=== PATIENT | male | born 1960 | race Caucasian/White ===

== ENCOUNTER 2023-11-25 09:45 | Emergency (ER) | payer OTHER, SELFPAY ==
[2023-11-25] VITALS (33 sets, daily range): BP systolic 113–126; BP diastolic 67–73; PULSE 82–107; RESP 2–18; TEMP 36.7–36.8; O2SAT 91–98
--- NOTE | 2023-11-25 10:00 | RT.EKG_ITS ---
APPROVED REPORT Exam: Resting ECG Reason for Exam: chest pain Patient Location: E HR:100 bpm ECG Measurements Heart Rate 100 AXIS NH 122 P 66 QRSd 81 QRS 39 QT 345 T 27 QTc 447 Conclusion Sinus tachycardia...rate> 99 Probable left atrial enlargement...P >50mS, <-0.10mV V1 sinus tachycardia, normal axis, normal intervals, nnon ischemic
--- NOTE | 2023-11-25 10:07 | ED.GENADUL_ITS ---
Discharge Plan Disposition Patient Disposition: Home Condition: Improving Discharge Details Clinical Impression: Pneumonia Primary Care Provider: Ricarda Dupree ED Provider: Ivan Rosenberg Home Meds and New Rx's Prescriptions: New levofloxacin 750 mg tablet 750 mg PO DAILY 7 Days Qty: 7 0RF albuterol sulfate 90 mcg/actuation HFA aerosol inhaler 2 puff inhalation Q6H PRN (Reason: shortness of breath or wheezing) Qty: 6.7 0RF No Action amlodipine 10 mg tablet 10 mg PO DAILY Discharge Instructions Instructions: Pneumonia (ED) HPI General Date/Time Provider Initiated Documentation: 11/25/23 09:57 . HPI Narrative: 63-year-old male presents with productive cough over the last day, left-sided chest discomfort body aches fevers chills and fatigue at home, did feel lightheaded yesterday, denies history of coronary disease or thromboembolic disease denies recent travel immobilization leg pain or swelling or recent surgery Related Data Home Medications Medication Instructions Recorded Confirmed amlodipine 10 mg tablet 10 mg PO DAILY 11/05/23 11/25/23 albuterol sulfate 90 mcg/actuation 2 puff inhalation Q6H PRN 11/25/23 aerosol inhaler shortness of breath or wheezing #6.7 grams levofloxacin 750 mg tablet 750 mg PO DAILY 7 days #7 tabs 11/25/23 Previous Rx's Medication Instructions Recorded albuterol sulfate 90 mcg/actuation 2 puff inhalation Q6H PRN 11/25/23 aerosol inhaler shortness of breath or wheezing #6.7 grams levofloxacin 750 mg tablet 750 mg PO DAILY 7 days #7 tabs 11/25/23 Allergies Allergy/AdvReac Type Severity Reaction Status Date / Time peanut Allergy Severe Swelling/Ed Verified 11/25/23 09:56 annabelle Penicillins Allergy UNKNOWN Unverified 11/25/23 09:56 CATS Allergy Unknown Swelling/Ed Uncoded 11/25/23 09:56 annabelle EGG WHITES Allergy Unknown Swelling/Ed Uncoded 11/25/23 09:56 annabelle HAY Allergy Unknown Swelling/Ed Uncoded 11/25/23 09:56 annabelle MOLD Allergy Unknown Swelling/Ed Uncoded 11/25/23 09:56 annabelle General Stated Complaint: GenMedical MINGO: 3 Review of Systems Narrative: Review of Systems Constitutional: Fatigue Eyes: negative ENT: negative Cardiovascular: negative Respiratory: Cough Gastrointestinal: negative : negative Musculoskeletal: negative Skin: negative Neurologic: negative Psych: negative Exam Narrative Exam Narrative: Physical Examination General: alert, awake, cooperative, resting comfortably, no acute distress HEENT: normocephalic, atraumatic; PERRL, EOM intact, conjunctiva normal; no nasal discharge; moist mucous membranes, oral and pharyngeal mucosa normal, tolerating secretions Neck: supple, trachea midline; full ROM Chest: normal to inspection Respiratory: normal respiratory effort, speaking in full sentences, clear to auscultation, no wheezing, rales or rhonchi Cardiac: regular rate, regular rhythm, S1S2 intact, no murmurs rubs or gallops GI: abdomen soft, non-tender, non-distended; no palpable mass or hepatosplenomegaly Skin: no lesions, rashes or trauma appreciated Neuro: AAOx3, normal speech, moving all extremities Psych: Appropriate mood and affect Course Vital Signs Vital signs: Vital Signs Temperature 36.8 C 11/25/23 09:52 Pulse 88 11/25/23 09:52 Respiratory Rate 16 11/25/23 09:52 Blood Pressure 126/67 11/25/23 09:52 Pulse Oximetry 98 11/25/23 09:52 Temperature 36.8 C 11/25/23 09:52 Pulse 88 11/25/23 09:52 Respiratory Rate 16 11/25/23 09:52 Blood Pressure 126/67 11/25/23 09:52 Pulse Oximetry 98 11/25/23 09:52 Medical Decision Making 63-year-old male presents with fevers chills productive cough left-sided chest discomfort, afebrile nontoxic speaking full sentences nonhypoxic nontachypneic nontachycardic, no history of coronary disease with normal heart disease, no thromboembolic risk factors, high clinical suspicion for pneumonia with pleurisy versus viral upper respiratory illness low suspicion for pneumothorax ACS or aortic pathology, must consider PE given lightheadedness pleuritic chest pain and report of hemoptysis, obtain screening labs chest x-ray trial of nebs and steroids, if there is no evidence of pneumonia on x-ray consider CT chest to assess for PE. 11: 40 evidence of left lower lobe pneumonia, starting on levofloxacin. Close reassessment of symptoms likely home with close follow-up and return precautions 15: [address] negative for PE. Multifocal pneumonia most heavily concentrated in left lower lobe. Will continue with levofloxacin as outpatient. Home care instructions and return precautions given Quality:SDOH Health Related Social Needs: No Data to Display PFSH All Active Problems (Updated 11/25/23 @ 15:11 by Ivan Rosenberg MD) Pneumonia (Acute) Screening for colon cancer (Acute) Medical History (Updated 11/25/23 @ 15:11 by Ivan Rosenberg MD) Bilateral hearing loss Internal hemorrhoids Mononeuropathy of left lower extremity Gout Hypertension Urinary frequency Tinnitus, bilateral Sensorineural hearing loss of both ears Asthma Personal history of colonic polyps Surgical History (Updated 01/04/22 @ 11:12 by Audra Villareal RN) History of colonoscopy (~12/2015) 2012 Family History Mother Hyperlipidemia Father Hypertensive disorder, systemic arterial Asthma Sister No problems noted. Social History (Updated 11/05/23 @ 08:38 by PETR Sahu) Smoking/Tobacco Use Status: Never Smoking risk assessment performed?: Yes Alcohol Intake: current Alcohol Intake frequency: a few times a week Drug use: Never Substance use type: does not use Housing: house Do you feel safe at home: Yes Do you feel safe in your relationship?: Yes
[2023-11-25 10:22] LABS: Abs Immature Grans 0.29 10^3/uL (0.0-0.06); HGB 13.6 g/dL (13.5-17.5); MCH 29.5 pg (27.0-33.0); MCHC 32.4 % (32.0-36.0); MCV 91 fL (80-95); MPV 9.1 fL (8.0-11.0); Platelet Count 296 10^3/uL (130-400); RBC 4.61 10^6/uL (4.36-5.78); RDW 12.9 % (11.8-14.1); RDW-SD 42.8 fL
[2023-11-25 10:29] LABS: WBC 27.84 10^3/uL (4.4-10.8)
[2023-11-25] MEDS: ACETAMINOPHEN 1,000 MG/100 ML BTL 400 MG IVPB (10:29)
[2023-11-25] MEDS: Albuterol 2.5 MG/3 ML INH SOLN VIAL UPD (10:29)
[2023-11-25] MEDS: Normal Saline 1,000 ML 1000 ML IV (10:30)
[2023-11-25] MEDS: Dexamethasone 10 MG/ML VIAL IVP (10:30)
[2023-11-25 10:36] LABS: Absolute Lymphocyte Count 1.39 10^3/uL (1.2-3.4); Absolute Monocyte Count 1.95 10^3/uL (0.1-0.8); Bands % 9; Diff Comment Manual Differential; INR 1.1 (0.9-1.1); PTT Activated 30.5 sec (23.6-32.8); Prothrombin Time 11.3 sec (9.1-11.1); RBC Morphology Normal
[2023-11-25 10:44] LABS: ALT 22 U/L (16-63); AST 16 U/L (15-37); Albumin 3.4 g/dL (3.4-5.0); Alkaline Phosphatase 71 U/L (46-116); Anion Gap 10.8 mmol/L (3-11); BUN 24 mg/dL (7-18); Bilirubin, Total 1.1 mg/dL (0.2-1.0); CO2 24.2 mmol/L (21.0-32.0); CREATININE 1.8 mg/dL (0.70-1.30); Chloride 99 mmol/L (98-107); Estimated GFR 41.77 (mL/min/1.73m2); Glucose 116 mg/dL (74-106); NT-proBNP 379 pg/mL (<300); Potassium 4.5 mmol/L (3.5-5.1); Sodium 134 mmol/L (136-145); Troponin I < 50 ng/L (< or =60)
--- NOTE | 2023-11-25 11:32 | DI.RAD_ITS ---
Exam(s) XR CHEST 2V PA LATERAL EXAM: XR CHEST 2V PA LATERAL CLINICAL HISTORY: productive cough, left sided chest pain TECHNIQUE: 2D digital imaging was performed of the chest. Two images were obtained. PA and lateral views were obtained. COMPARISON: No exams were available for comparison FINDINGS: MEDIASTINUM: Normal. HEART: Normal. PULMONARY VASCULATURE: Normal. LUNGS: There is a left lower lobe infiltrate. PLEURAL SPACE: There is a small left pleural effusion. No right pleural effusion. No pneumothorax. BONE:Within normal limits for the patient's age. OTHER FINDINGS:Normal. IMPRESSION: Small left lower lobe infiltrate which may represent pneumonia. Small left pleural effusion. DATA REPOSITORY: RADIATION DOSE DELIVERED:
[2023-11-25] MEDS: levoFLOXacin 500 MG, levoFLOXacin 250 MG 750 MG PO (11:44)
[2023-11-25] MEDS: Normal Saline - Diluent 50 ML VIAL IJ (14:11)
[2023-11-25] MEDS: Omnipaque 350 MG/ML 100 ML BTL IJ (14:12)
--- NOTE | 2023-11-25 14:25 | DI.CT_ITS ---
Exam(s) CT CHEST PE CTA EXAM: CT CHEST PE CTA CLINICAL HISTORY: left lower lobe wedge infiltrate; hemoptysis;ro PE. TECHNIQUE: Imaging Protocol: Axial CT angiography was performed with multi-slice acquisition and mu lti-planar and/or 3D reconstructions. CONTRAST MATERIAL: Intravenous: Omnipaque 350 contrast volume:100 mL COMPARISON: CR XR CHEST 2V PA LATERAL from 11/25/2023 FINDINGS: Tracheobronchial tree: Patent where visualized. Pulmonary parenchyma: There is a left lower lobe infiltrate consistent with pneumonia. Smaller infil trates are seen in the posterior aspect of the right lower lobe and the posterior aspect of the left lingula. No architectural distortion. Pulmonary Arteries: No evidence of filling defect to suggest pulmonary emboli. Mediastinum and Brianne: No dominant adenopathy or fluid collection. The esophagus is unremarkable. Visualized thyroid gland: Unremarkable. Pleura: No effusion or pneumothorax. Heart: Upper limits of normal in size. No coronary artery calcifications are seen. No pericardial ef fusion. Aorta: Thoracic aorta non-dilated. No evidence of dissection. Mild atherosclerotic calcification. Upper abdomen: Unremarkable. Soft tissues: Unremarkable. Bones: Within normal limits for the patient's age. IMPRESSION: 1. No evidence of pulmonary embolism, thoracic aortic dissection or aneurysm. 2. Left lower lobe pneumonia. Small infiltrates are also seen in the right lower lobe and the left l ingula. RADIATION DOSE DELIVERED: Total DLP DATA REPOSITORY: All CT scans at this facility are submitted to the National Radiology Data Registry (NRDR) Dose Index Registry (DIR) with the [employer] (A[employer]). RADIATION OPTIMIZATION: All CT scans at this facility use at least one of these dose optimization te chniques: automated exposure control; mA and/or kV adjustment per patient size (includes targeted exa ms where dose is matched to clinical indication); or iterative reconstruction.
== END 2023-11-25 15:23 | disposition home or self-care (01) ==
PROVIDERS: Emergency Provider Emergency Medicine; PCP Family Medicine
DX: J18.9 Pneumonia, unspecified organism (principal); I10 Essential (primary) hypertension
CPT/HCPCS: 36415; 71275; 80053; 93005; 94640; 96361; 96374; 96375; 99285; 71046; 83880; 84484; 85025; 85610; 85730; 93010; 99284; J0131; J1100; J3490; J7613

== ENCOUNTER 2024-06-28 10:12 | Day surgery (SDC) | payer OTHER, SELFPAY ==
--- NOTE | 2024-06-27 10:55 | PDOC.DSDIS_ITS ---
Date of service: 06/28/24 Time of Service: 11:24 Discharge Plan Disposition Patient Disposition: Home Condition: Good Discharge Details Reason For Visit: screening colonoscopy Attending Provider: Gary Ovalle Primary Care Provider: Ricarda Dupree Home Meds and New Rx's Prescriptions: Continued amlodipine 10 mg tablet 10 mg PO DAILY Discontinued bisacodyl [Dulcolax (bisacodyl)] 5 mg tablet,delayed release (DR/EC) 5 mg PO ONCE Qty: 4 0RF Rx Instructions: Take per colonoscopy instructions provided by ordering providers office polyethylene glycol 3350 17 gram/dose powder 17 g PO ONCE Qty: 238 0RF Rx Instructions: Take per colonoscopy instructions provided by ordering providers office Discharge Instructions Instructions: Colon polyps, Diverticulosis Additional Instructions: Dimitri, we are able to complete your colonoscopy today without any difficulty. Your prep was outstanding, and I could see everything fine. I did find and remove total of 5 polyps today. Generally these were small, and none of them appear worrisome to the naked eye. These will all be sent off for testing, and once into the nature of the polyps, the office will be in touch with r ecommendations for the timing of your next colonoscopy. Incidentally, you also have some diverticulosis. Diverticula are little weak spots in the muscular portion of the colon wall. This causes the inside lining to approach outward a little bit. Typically, they cause problems, that is experienced as pain that usually on the left lower side of the abdomen. During these flareups, we refer to it as diverticulitis. Often times, those episodes are treated with antibiotics. Hopefully, years do not ever cause you any trouble. I will attach a little bit of information here about diverticulosis as well as colorectal polyps. If you have any questions before the pathology results are available, please do not hesitate to call and ask. 1. If tolerated, consume a soft, low fiber diet for 1-2 days. [address] Do not drive, drink alcohol, operate machinery, make critical decisions, or do activities that require coordination or balance for 24 hours. 3. Because air was put into your colon during the procedure, expelling air from your rectum (passing gas or farting) is normal. 4. You may not have a bowel movement for 1-3 days because of the colonoscopy prep. This is normal. 5. Go directly to the emergency room if you notice any of the following: Develop chills (warm to touch), or if you have a thermometer and your temperature is above 101 Difficulty breathing or difficultly swallowing Persistent vomiting Severe abdominal pain, other than gas cramps Severe chest pain Black, tarry stools Any bleeding ? exceeding one tablespoon 6. Call your physician if the site where your intravenous was started becomes red, swollen, painful, and warm to touch. 7. Your physician has reviewed your pre-procedure medications. Please continue to take those medications as previously ordered. You will be given specific information/education regarding any changes to your medications before leaving. Activity:: Activity as Tolerated Diet:: As Tolerated Discharge Orders Discharge Orders: Discharge Order (Routine); Ordered 06/27/24 Ordered By: Gary Ovalle DS: Diagnosis Discharge Diagnosis (1) Encounter for screening colonoscopy: Status: Acute Asessment and Plan: Follow-up on polypectomy results
--- NOTE | 2024-06-27 10:58 | W.COLOREPORT ---
Date of service: 06/28/24 Time of Service: 11:26 Colonoscopy Report Date of procedure: 06/28/24 Pre-op diagnosis general: screening colonoscopy Post-op diagnosis procedure note: other (Colon polyps, diverticulosis) Procedure: colonoscopy with polypectomy Surgeon: Gary Ovalle Anesthesia Type: General:No Airway Estimated blood loss (mL): 10 Pathology: other (0.25 cm rectal polyps x 2, 0.25 cm polyp at 10 cm, 0.25 cm polyp at 50 cm, 0.25 cm polyp at 65 cm) Complications: None Disposition: same day Indications: Dimitri is a 64 year old man with a history of adenomatous polyps who needs his next screening colonoscopy Prep: Miralax/Dulcolax Procedure Start Time: 10:57 Procedure End Time: 11:19 Retraction Time: 11 Findings: Diverticulosis; 0.25 cm rectal polyps x 2, 0.25 cm polyp at 10 cm, 0.25 cm polyp at 50 cm, 0.25 cm polyp at 65 cm Procedure Description: After the induction of anesthesia, and with the patient in left lateral decubitus position, I began by performing an external anorectal exam.? Perineum and skin were normal, as was the anal verge.? There was no evidence of external hemorrhoids.? Next, I performed a digital rectal exam.? I did not appreciate any abnormal findings.? Next, I advanced a colonoscope into the rectal vault.? I performed retroflexion.? This appeared normal.? In the upper portion of the rectal vault were 2 polyps. Both were mostly flat. These were each less than 0.25 cm, and I removed both of these with cold forceps with minimal bleeding. These were sent as a single specimen. using insufflation, I then advanced the colonoscope beyond the rectal folds and into the sigmoid colon before advancing towards the cecum.? There is sigmoid diverticulosis.? The scope was noted to be in the cecum by identification of the ileocecal valve and appendiceal orifice.? I then began withdrawing the colonoscope using repeated irrigation as necessary for full evaluation of the colonic mucosa. I found a 0.25 cm slightly pedunculated polyp at 65 cm from the anus. This was removed with cold forceps. I found another polyp, just less than 0.25 cm at 50 cm from the anus. This was a little more flat, and I removed this with cold forceps as well. Once the scope was withdrawn to the level of the rectum, great care was taken to examine portions of the rectal folds.? Slightly below the level of the after mentioned rectal polyps was 1 more polyp. This was also fairly rounded. Measured about 10 cm up from the anus. This was removed with cold forceps with minimal bleeding finally, the scope was withdrawn and the patient was brought to the same-day surgery recovery unit as the anesthetic wore off. ?The findings and instructions were shared with the patient prior to discharge. Points Bowel Prep Points Bowel Prep Right Colon: 3 Left Colon: 3 Transverse Colon: 3 Total Score: 9
[2024-06-28 10:21] VITALS: BP 127/86; PULSE 77; RESP 16; TEMP 36.7; O2SAT 96
[2024-06-28] MEDS: Lactated Ringers 1,000 ML 80 ML IV (10:32)
--- NOTE | 2024-06-28 10:46 | W.ANESPRE ---
General Info Date of Service Date Performed: 06/28/24 Height: 5 ft 10 in Weight: 103 kg Body Mass Index (BMI): 32.5 Surgical Procedure: Operation Date: 06/28/24 10:35 Proposed Procedure Side Surgeon p Colonoscopy Gary Ovalle MD Actual Procedure Side Surgeon p Colonoscopy Gary Ovalle MD Pre-Op Diagnosis Post-Op Diagnosis history of adenomatous polyps Meds Allergies and Home Medications Allergies Allergy/AdvReac Type Severity Reaction Status Date / Time peanut Allergy Severe Swelling/Ed Verified 06/28/24 10:30 annabelle Penicillins Allergy UNKNOWN Verified 06/28/24 10:30 CATS Allergy Unknown Swelling/Ed Uncoded 06/28/24 10:30 annabelle EGG WHITES Allergy Unknown Swelling/Ed Uncoded 06/28/24 10:30 annabelle HAY Allergy Unknown Swelling/Ed Uncoded 06/28/24 10:30 annabelle MOLD Allergy Unknown Swelling/Ed Uncoded 06/28/24 10:30 annabelle Home Medication ?Medication ?Instructions ?Recorded amlodipine 10 mg tablet 10 mg PO DAILY 11/05/23 Current Visit Medications: Current Medications Generic Name Dose Route Start Last Admin Trade Name Freq PRN Reason Stop Dose Admin Ringer's Solution 1,000 mls @ 80 mls/hr 06/28/24 06:00 06/28/24 10:32 IV 07/25/24 23:59 80 mls/hr INFUSION PARTH Administration IV Miscellaneous Supplies 1 each 06/28/24 06:00 Iv Access IV 07/25/24 23:59 DIRECTED PARTH Ondansetron HCl 4 mg 06/27/24 10:59 Ondansetron 4 Mg/2 Ml Vial IVP 07/27/24 10:58 Q4H PRN PRN Nausea / Vomiting Sodium Chloride 0 ml 06/28/24 06:00 Normal Saline Flush 10 Ml Syr IV 07/25/24 23:59 PRN PRN Sodium Chloride 0 ml 06/28/24 06:00 Normal Saline 10 Ml Vial IJ 07/25/24 23:59 DIRECTED PRN Sterile Water 0 ml 06/28/24 06:00 Water,Injection,Sterile 10 Ml Vial IJ 07/25/24 23:59 DIRECTED PRN PFSH Active Problems Active Problems: Problem Status Onset Code Encounter for screening colonoscopy Acute Z12.11 Screening for colon cancer Acute Z12.11 Medical History Medical History Bilateral hearing loss Internal hemorrhoids Mononeuropathy of left lower extremity Gout Hypertension Urinary frequency Tinnitus, bilateral Sensorineural hearing loss of both ears Asthma Personal history of colonic polyps Surgical History Surgical History History of colonoscopy (~12/2015) 2012 Tobacco Smoking/Tobacco Use Status: Never Alcohol Alcohol Intake: current Alcohol intake frequency: a few times a week Substance Use Substance use: Never Substance use type: does not use Vital Signs and Lab Results Vital Signs Most Recent Vital Signs in EMR: Most Recent Vital Signs Temp Pulse Resp BP Pulse Ox 36.7 C 77 16 127/86 96 06/28/24 10:21 06/28/24 10:21 06/28/24 10:21 06/28/24 10:21 06/28/24 10:21 Lab Results Blood Type / Crossmatch: No Data to Display Complete Blood Count: No Data to Display Complete Metabolic Panel: No Data to Display Liver Function Panel: No Data to Display Coagulation Panel: No Data to Display Cardiac Panel: No Data to Display Arterial Blood Gas: No Data to Display Venous Blood Gas: No Data to Display Pancreas Panel: No Data to Display Thyroid Panel: No Data to Display Infectious Disease: No Data to Display Blood Cultures: No Data to Display Toxicology Panel: No Data to Display Anesthesia Assessment and Plan Anesthesia History Personal History: No History of Anesthesia Complications Family History: No Family History of Anesthesia Complications Exercise Tolerance Exercise Tolerance: Metabolic Equivalents>4 Pertinent Negatives Pertinent Negatives: No Symptoms of GERD Cardiac & Pulmonary Exam Cardiac Exam: Normal S1/S2 Heart Sounds Pulmonary Exam: Clear Bilateral Breath Sounds Implantable Cardiac Device Does patient have a Pacemaker or an ICD?: No Airway Exam Known Difficult Airway: No Mallampati Class: 2 Mouth Opening: Normal (> 3cm) Thyromental Distance: Greater than 3 cm Neck Range of Motion: Full ROM Neck Circumference: Normal Teeth Condition: Normal Dentition ASA Classification ASA Score: ASA 2 Emergency Case?: No NPO Status NPO Status: NPO Clears >2 hours, Solids >8 hours Anesthesia Plan Resuscitation Status: Full Code Anesthesia Technique: General Anesthesia Airway Planned: Natural Airway Monitors Used: Standard Monitors
[2024-06-28 10:47] VITALS: BMI 32.5
--- NOTE | 2024-06-28 10:58 | BOWEL_PTH ---
PATIENT: Dimitri Lockwood LOC: [facility] U#:[id number] AGE/SX: 64/M ROOM: RE06/28/[address]: Gary Ovalle MD : 1960 BED: DIS: 06/28/2024 SPEC #: [id number] RECD: 06/28/24 13:04 STATUS: [facility] #: [id number] ERLIN: 06/28/24 10:[address]: Gary Ovalle DEPT: Surgical Specimen RECD BY: Joyce Clemons ENTERED: 06/28/24 13:06 SP TYPE: Bowel OTHR DR: Ricarda Dupree Tissues: 1 - BIOPSY BOWEL 2 - BIOPSY BOWEL 3 - BIOPSY BOWEL 4 - BIOPSY BOWEL Procedures: GROSS AND MICRO LEVEL 4 Comments: [id number]
[2024-06-28 11:29] VITALS: BP 111/75; PULSE 61; RESP 20; TEMP 36.4; O2SAT 96
[2024-06-28 11:57] VITALS: BP 110/75; PULSE 65; RESP 18; TEMP 36.3; O2SAT 98
--- NOTE | 2024-06-28 12:10 | W.ANESPOSTOP ---
Postoperative Evaluation Date, Time and Location Date Performed: 06/28/24 Time Performed: 12:10 Patient Location: Day Surgery Unit Vital Signs Most Recent Imported Vital Signs: Most Recent Vital Signs Temp Pulse Resp BP Pulse Ox 36.4 C L 61 20 111/75 96 06/28/24 11:29 06/28/24 11:29 06/28/24 11:29 06/28/24 11:29 06/28/24 11:29 Pain Score Most Recent Pain Score: Most Recent Pain Score Pain Level 0 06/28/24 11:29 Assessment Mental Status: Awake (Alert & Oriented to Patient Baseline) Airway and Respiratory Function: Patent airway with normal (patient baseline) respiratory exam Cardiovascular Function: Hemodynamically Stable Hydration Status: Adequately Hydrated Nausea & Vomiting: No Nausea or Vomiting Pain: Pt. Denies Any Pain Peripheral Nerve Block: Patient did not receive a nerve block
== END 2024-06-28 12:11 | disposition home or self-care (01) ==
LOC: SUR 10:13
PROVIDERS: PCP Family Medicine; Visit Provider Surgery
PROC: 0DJD8ZZ Inspection of Lower Intestinal Tract, Via Natural or Artificial Opening Endoscopic (ICD-10-PCS; CPT 45378; principal; 2024-06-28 10:30)
DX: Z12.11 Encounter for screening for malignant neoplasm of colon (principal); D12.4 Benign neoplasm of descending colon; K57.30 Diverticulosis of large intestine without perforation or abscess without bleeding; K62.1 Rectal polyp
CPT/HCPCS: 45380; 88305; J2003; J2704